=== PATIENT | female | born 1960 | race Two or more races ===

== ENCOUNTER 2025-07-20 20:35 | Emergency (ER) | payer MEDICAID ==
[~2025-07-20] VITALS: Ht 162.6 cm; Wt 117.9 kg
[2025-07-20 20:53] VITALS: TEMP 98.1
[2025-07-20] MEDS ORDERED: SULF1TAB48 PO (21:28)
[2025-07-20] MEDS ORDERED: LIDOCAINE /MPF 1% VIAL 5 ML VIAL ONE (21:34)
[2025-07-20] MEDS ORDERED: CEFTRIAXONE 1 G VIAL ONE (21:34)
[2025-07-20] MEDS: CEFTRIAXONE 1 G VIAL IM ONE (21:38)
[2025-07-20 21:46] VITALS: BP 145/89; O2SAT 98
== END 2025-07-20 21:45 | disposition home or self-care (01) ==
LOC: ER 20:41
DX: N61.0 Mastitis without abscess (principal); I11.0 Hypertensive heart disease with heart failure; I50.9 Heart failure, unspecified; Z85.3 Personal history of malignant neoplasm of breast
CPT/HCPCS: 99284; 96372; J0696; J3490